=== PATIENT | female | born 1950 | race Caucasian/White ===

== ENCOUNTER 2025-04-26 11:07 | Outpatient (CLI) | payer MEDICARE, OTHER, SELFPAY ==
--- NOTE | ~2025-04-26 | US_ITS ---
US soft tissue head and neck 04/26/2025 11:29 Indication: Neck swelling Procedure: Soft tissue ultrasound of the left neck in the area of palpable concern Comparison: No prior studies for comparison. Findings: There are multiple normal-appearing lymph nodes in the left neck in the area of palpable concern, largest measuring 1.3 x 0.5 x 1.1 cm. Impression: 1: Normal-appearing cervical lymph nodes. No lymphadenopathy identified. Reviewed, dictated and finalized at location A. Impression: 1: Normal-appearing cervical lymph nodes. No lymphadenopathy identified.
== END 2025-04-26 11:08 | disposition home or self-care (01) ==
PROVIDERS: PCP Internal Medicine; Visit Provider Internal Medicine
DX: R22.1 Localized swelling, mass and lump, neck (principal)
CPT/HCPCS: 76536

== ENCOUNTER 2025-05-16 11:11 | Outpatient (CLI) | payer MEDICARE, OTHER, SELFPAY ==
--- NOTE | ~2025-05-16 | CT_ITS ---
EXAMINATION: CT abdomen pelvis w con DATE: 05/16/2025 12:08 INDICATION: Epigastric abdominal pain. Cough. Gastroesophageal reflux disease. TECHNIQUE: Computed tomography (CT) of the abdomen and pelvis was performed with 100 mL Omnipaque 350 intravenous contrast. Automated exposure control and iterative reconstruction technique were employed. The dose-length product was 528.97 mGy-cm. COMPARISON: None. FINDINGS: The visualized portions of lung bases demonstrate mild atelectasis. No pleural effusion. The heart size is normal. No pericardial effusion. The liver, gallbladder, spleen, pancreas, and adrenal glands are normal. There are cysts in the kidneys measuring up to 14 mm on the right. There are no dilated loops of bowel. The appendix is not visualized. There are no pathologically enlarged lymph nodes. There is no free intraperitoneal fluid. There is severe lower lumbar spondylosis. IMPRESSION: 1. No etiology for the patient's symptoms. Reviewed, dictated and finalized at location E.
[2025-05-16 11:31] LABS: Estimated Glomerular Filt Rate > 60
== END 2025-05-16 11:12 | disposition home or self-care (01) ==
LOC: MICIMG 11:14
PROVIDERS: PCP Internal Medicine; Visit Provider Internal Medicine Gastroenterology
DX: K21.9 Gastro-esophageal reflux disease without esophagitis (principal)
CPT/HCPCS: 74177; Q9967